=== PATIENT | male | born 1945 ===

== ENCOUNTER 2016-05-06 07:02 | Outpatient (RCR) | payer MEDICARE, OTHER ==
[~2016-05-06] VITALS: Ht 175.3 cm; Wt 70.3 kg
[2016-05-06] MEDS ORDERED: Ketorolac 60mg Inj ONE ×2 (07:03)
[2016-05-06] MEDS ORDERED: Succinylcholine 20mg/ml 10ml vial ONE ×2 (07:03)
[2016-05-06] MEDS ORDERED: NS 550ML IV ONE ×2 (07:03)
[2016-05-06] MEDS ORDERED: Midazolam 2mg/2ml Inj ONE ×2 (07:03)
[2016-05-06] MEDS ORDERED: Methohexital Sodium Syr 100mg/10ml IVP ONE ×2 (07:03)
[2016-05-31] MEDS ORDERED: Ketorolac 60mg Inj ONE (07:00)
[2016-05-31] MEDS ORDERED: NS 550ML IV ONE (07:00)
[2016-05-31] MEDS ORDERED: Methohexital Sodium Syr 100mg/10ml IVP ONE (07:00)
[2016-05-31] MEDS ORDERED: Midazolam 2mg/2ml Inj ONE (07:00)
[2016-05-31] MEDS ORDERED: Succinylcholine 20mg/ml 10ml vial ONE (07:00)
== END 2016-06-01 | disposition home or self-care (01) ==
LOC: ECT 07:02
DX: F33.2 Major depressive disorder, recurrent severe without psychotic features (principal); G20 Parkinson's disease; Z85.72 Personal history of non-Hodgkin lymphomas
CPT/HCPCS: 90870; J0330; J2250; J2405; J7040

== ENCOUNTER 2016-06-14 06:02 | Outpatient (RCR) | payer MEDICARE, OTHER ==
[~2016-06-14] VITALS: Ht 175.3 cm; Wt 70.3 kg
[2016-06-14] MEDS ORDERED: Midazolam 2mg/2ml Inj ONE (06:03)
[2016-06-14] MEDS ORDERED: Succinylcholine 20mg/ml 10ml vial ONE (06:03)
[2016-06-14] MEDS ORDERED: Ketorolac 30mg Inj ONE (06:03)
[2016-06-14] MEDS ORDERED: Methohexital Sodium Syr 100mg/10ml IVP ONE (06:03)
[2016-06-14] MEDS ORDERED: NS 550ML IV ONE ×2 (06:03)
[2016-06-14] MEDS ORDERED: Atropine Sulfate 0.4mg/ml inj IVP PRN (20:15)
[2016-06-21] MEDS ORDERED: Ketorolac 60mg Inj ONE (06:03)
[2016-06-21] MEDS ORDERED: NS 550ML IV ONE (06:03)
[2016-06-21] MEDS ORDERED: Midazolam 2mg/2ml Inj ONE (06:03)
[2016-06-21] MEDS ORDERED: Succinylcholine 20mg/ml 10ml vial ONE (06:03)
[2016-06-21] MEDS ORDERED: Methohexital Sodium Syr 100mg/10ml IVP ONE (06:03)
== END 2016-06-29 | disposition home or self-care (01) ==
LOC: ECT 06:02
DX: F33.2 Major depressive disorder, recurrent severe without psychotic features (principal)
CPT/HCPCS: 90870; J0330; J1885; J2250; J2405; J7040

== ENCOUNTER 2016-07-05 06:40 | Outpatient (RCR) | payer MEDICARE, OTHER ==
[~2016-07-05] VITALS: Ht 175.3 cm; Wt 70.3 kg
[2016-07-05] MEDS ORDERED: Methohexital Sodium Syr 100mg/10ml IVP ONE (06:41)
[2016-07-05] MEDS ORDERED: Midazolam 2mg/2ml Inj ONE (06:41)
[2016-07-05] MEDS ORDERED: NS 550ML IV ONE (06:41)
[2016-07-05] MEDS ORDERED: Ketorolac 60mg Inj ONE (06:41)
[2016-07-05] MEDS ORDERED: Succinylcholine 20mg/ml 10ml vial ONE (06:41)
[2016-07-05] MEDS ORDERED: Atropine Sulfate 0.4mg/ml inj IVP PRN (07:28)
== END 2016-07-30 | disposition home or self-care (01) ==
LOC: ECT 06:40
DX: F33.2 Major depressive disorder, recurrent severe without psychotic features (principal)
CPT/HCPCS: 90870; J0330; J2250; J2405; J7040

== ENCOUNTER 2016-08-06 06:09 | Outpatient (RCR) | payer MEDICARE, OTHER ==
[~2016-08-06] VITALS: Ht 175.3 cm; Wt 70.3 kg
[2016-08-06] MEDS ORDERED: NS 550ML IV ONE ×4 (06:10)
[2016-08-06] MEDS ORDERED: Methohexital Sodium Syr 100mg/10ml IVP ONE ×3 (06:10)
[2016-08-06] MEDS ORDERED: Midazolam 2mg/2ml Inj ONE ×3 (06:10)
[2016-08-06] MEDS ORDERED: Succinylcholine 20mg/ml 10ml vial ONE ×4 (06:10)
[2016-08-06] MEDS ORDERED: Methohexital Sodium 500mg Vial IVP ONE (06:10)
[2016-08-06] MEDS ORDERED: Ketorolac 30mg Inj ONE (06:10)
[2016-08-06] MEDS ORDERED: Ketorolac 60mg Inj ONE ×3 (06:10)
[2016-08-09] MEDS ORDERED: Ketorolac 60mg Inj ONE (12:30)
[2016-08-09] MEDS ORDERED: Succinylcholine 20mg/ml 10ml vial ONE (12:30)
[2016-08-09] MEDS ORDERED: NS 550ML IV ONE (12:30)
[2016-08-09] MEDS ORDERED: Methohexital Sodium Syr 100mg/10ml IVP ONE (12:30)
[2016-08-09] MEDS ORDERED: Atropine Sulfate 0.4mg/ml inj IVP PRN (17:30)
[2016-08-13] MEDS ORDERED: Succinylcholine 20mg/ml 10ml vial ONE (21:17)
[2016-08-13] MEDS ORDERED: Methohexital Sodium Syr 100mg/10ml IVP ONE (21:17)
[2016-08-13] MEDS ORDERED: NS 550ML IV ONE (21:17)
[2016-08-13] MEDS ORDERED: Ketorolac 30mg Inj ONE (21:17)
[2016-08-13] MEDS ORDERED: Midazolam 2mg/2ml Inj ONE (21:17)
[2016-08-16] MEDS ORDERED: Methohexital Sodium Syr 100mg/10ml IVP ONE (08:00)
[2016-08-16] MEDS ORDERED: Ketorolac 60mg Inj ONE (08:00)
[2016-08-16] MEDS ORDERED: Succinylcholine 20mg/ml 10ml vial ONE (08:00)
[2016-08-16] MEDS ORDERED: Labetalol 5mg/ml 20ml vial IV ONE (08:00)
[2016-08-16] MEDS ORDERED: NS 550ML IV ONE (08:00)
[2016-08-18] MEDS ORDERED: NS 550ML IV ONE (06:00)
[2016-08-18] MEDS ORDERED: Ketorolac 60mg Inj ONE (06:00)
[2016-08-18] MEDS ORDERED: Midazolam 2mg/2ml Inj ONE (06:00)
[2016-08-18] MEDS ORDERED: Succinylcholine 20mg/ml 10ml vial ONE (06:00)
[2016-08-18] MEDS ORDERED: Methohexital Sodium Syr 100mg/10ml IVP ONE (06:00)
[2016-08-23] MEDS ORDERED: Methohexital Sodium Syr 100mg/10ml IVP ONE (06:00)
[2016-08-23] MEDS ORDERED: Atropine Sulfate 0.4mg/ml inj IVP PRN (09:23)
== END 2016-08-29 | disposition home or self-care (01) ==
LOC: ECT 06:09
DX: F33.2 Major depressive disorder, recurrent severe without psychotic features (principal)
CPT/HCPCS: 90870; J0330; J1885; J2250; J2405; J7040; J3490

== ENCOUNTER 2016-09-03 05:09 | Outpatient (RCR) | payer MEDICARE, OTHER ==
[~2016-09-03] VITALS: Ht 175.3 cm; Wt 70.3 kg
[2016-09-03] MEDS ORDERED: Ketorolac 60mg Inj ONE (05:10)
[2016-09-03] MEDS ORDERED: NS 550ML IV ONE (05:10)
[2016-09-03] MEDS ORDERED: Methohexital Sodium Syr 100mg/10ml IVP ONE (05:10)
[2016-09-03] MEDS ORDERED: Succinylcholine 20mg/ml 10ml vial ONE (05:10)
[2016-09-03] MEDS ORDERED: Midazolam 2mg/2ml Inj ONE (05:10)
[2016-09-20] MEDS ORDERED: NS 550ML IV ONE (08:00)
[2016-09-20] MEDS ORDERED: Ketorolac 60mg Inj ONE (08:00)
[2016-09-20] MEDS ORDERED: Succinylcholine 20mg/ml 10ml vial ONE (08:00)
[2016-09-20] MEDS ORDERED: Midazolam 2mg/2ml Inj ONE (08:00)
[2016-09-20] MEDS ORDERED: Methohexital Sodium Syr 100mg/10ml IVP ONE (08:00)
== END 2016-09-29 | disposition home or self-care (01) ==
LOC: ECT 05:09
DX: F33.2 Major depressive disorder, recurrent severe without psychotic features (principal)
CPT/HCPCS: 90870; J0330; J2250; J2405; J7040

== ENCOUNTER 2016-10-06 08:32 | Outpatient (RCR) | payer MEDICARE, OTHER ==
[~2016-10-06] VITALS: Ht 175.3 cm; Wt 70.3 kg
[~2016-10-06 08:32] MED LIST: Atropine Sulfate 0.4mg/ml inj IVP PRN
[2016-10-06] MEDS ORDERED: Succinylcholine 20mg/ml 10ml vial ONE (08:33)
[2016-10-06] MEDS ORDERED: Midazolam 2mg/2ml Inj ONE (08:33)
[2016-10-06] MEDS ORDERED: Ketorolac 60mg Inj ONE (08:33)
[2016-10-06] MEDS ORDERED: Methohexital Sodium Syr 100mg/10ml IVP ONE (08:33)
[2016-10-06] MEDS ORDERED: NS 550ML IV ONE (08:33)
[2016-10-11] MEDS ORDERED: NS 550ML IV ONE (19:53)
[2016-10-11] MEDS ORDERED: Midazolam 2mg/2ml Inj ONE (19:53)
[2016-10-11] MEDS ORDERED: Ketorolac 60mg Inj ONE (19:53)
[2016-10-11] MEDS ORDERED: Succinylcholine 20mg/ml 10ml vial ONE (19:53)
[2016-10-11] MEDS ORDERED: Methohexital Sodium 500mg Vial IVP ONE (19:53)
[2016-10-18] MEDS ORDERED: NS 550ML IV ONE (14:55)
[2016-10-18] MEDS ORDERED: Methohexital Sodium Syr 100mg/10ml IVP ONE (14:55)
[2016-10-18] MEDS ORDERED: Succinylcholine 20mg/ml 10ml vial ONE (14:55)
[2016-10-18] MEDS ORDERED: Ketorolac 30mg Inj ONE (14:55)
== END 2016-10-29 | disposition home or self-care (01) ==
LOC: ECT 08:32
DX: F33.2 Major depressive disorder, recurrent severe without psychotic features (principal)
CPT/HCPCS: 90870; J0330; J1885; J2250; J2405; J3490; J7040